=== PATIENT | male | born 1965 | race Caucasian/White ===

== ENCOUNTER 2018-06-21 09:56 | Emergency (ER) | payer BC, OTHER ==
[~2018-06-21] VITALS: Ht 188 cm; Wt 83.9 kg
--- NOTE | 2018-06-21 10:22 | NUR ---
PT WALKED INTO EMERGENCY ROOM FOR CHEST PRESSURE STARTING ABOUT 0945 THIS AM. PT HAD BEEN SEEN FOR SIMILAR SYNPTOMS AT [facility] AND IS DUE FOR STRES TEST. PIV ESTABLISHED EKG DONE SET UP ON [facility] [employer] [facility] SENT FOR PROCESSING. PT ALERT WITH ORIENTATION X 4 WILL CONTINUE TO MONITOR.
[2018-06-21 10:33] LABS: BASOPHILS % (AUTO) 0.5 % (0.0-2.0); EOSINOPHILS % (AUTO) 1.2 % (0.0-6.0); HEMATOCRIT 45 % (39-51); LYMPHOCYTES % (AUTO) 41.1 % (20.0-44.0); MEAN CORPUSCULAR HGB CONC 33 g/dl (31.0-36.0); MEAN CORPUSCULAR VOLUME 90 fL (80-96); MONOCYTES # (AUTO) 0.5 /CMM (0.1-1.30); MONOCYTES % (AUTO) 9.6 % (2.0-12.0); NEUTROPHILS # (AUTO) 2.4 /CMM (1.8-8.9); NEUTROPHILS % (AUTO) 47.6 % (43.0-81.0); PLATELET COUNT (AUTO) 203 /CMM (150-450); RED BLOOD CELL COUNT(AUTO) 5.02 MIL/uL (4.5-6.0)
[2018-06-21 10:40] LABS: CALCIUM, SERUM 8.9 mg/dL (8.5-10.1); CARBON DIOXIDE 28 mmol/L (21-32); CHLORIDE 103 mmol/L (98-107); CREATININE 1.1 mg/dL (0.6-1.3); GLUCOSE 104 mg/dL (74-106); POTASSIUM 3.5 mmol/L (3.5-5.1); SODIUM SERUM 142 mmol/L (136-145); UREA NITROGEN, BLOOD 19 mg/dL (7-18)
[2018-06-21 10:55] LABS: ALANINE AMINOTRANSFERASE 30 U/L (12-78); ALBUMIN 4.3 g/dL (3.4-5.0); ALKALINE PHOSPHATASE 62 U/L (46-116); ASPARTATE AMINOTRANSFERASE 18 U/L (15-37); BILIRUBIN,DIRECT 0.1 mg/dL (0.0-0.2); BILIRUBIN,TOTAL 0.5 mg/dL (0.2-1.0); TOTAL PROTEIN, SERUM 7.9 g/dL (6.4-8.2)
--- NOTE | 2018-06-21 11:58 | NUR ---
Patient discharged to home in stable condition. Written and verbal after care instructions given. Patient verbalizes understanding of instruction. IV removed. Catheter intact and site benign. Pressure and 4x4 applied to site. No bleeding noted.
[2018-06-21 11:59] VITALS: BP 148/72
== END 2018-06-21 11:59 | disposition home or self-care (01) ==
LOC: ER 09:57
DX: R00.2 Palpitations (principal); Z96.641 Presence of right artificial hip joint; Z60.2 Problems related to living alone; Z85.828 Personal history of other malignant neoplasm of skin
CPT/HCPCS: 36415; 71045-TC; 80048-TC; 80076-TC; 84484-TC; 85025-TC; 85730-TC; A4606; Z7610

== ENCOUNTER 2024-11-08 14:39 | Emergency (ER) | payer BC, OTHER ==
[~2024-11-08] VITALS: Ht 188 cm; Wt 83.9 kg
[2024-11-08 14:59] VITALS: BP 106/69; TEMP 98.4; O2SAT 100
[2024-11-08] MEDS ORDERED: TDAP [DIPH/PERTUSSIS/TET] 0.5 ML VIAL IM ONE (15:30)
[2024-11-08] MEDS: TDAP [DIPH/PERTUSSIS/TET] 0.5 ML VIAL IM ONE (15:30)
== END 2024-11-08 15:34 | disposition home or self-care (01) ==
LOC: ER 14:45
DX: S80.811A Abrasion, right lower leg, initial encounter (principal); Z86.79 Personal history of other diseases of the circulatory system; Z85.828 Personal history of other malignant neoplasm of skin; Z96.641 Presence of right artificial hip joint; W22.8XXA Striking against or struck by other objects, initial encounter; Y93.55 Activity, bike riding; Y92.488 Other paved roadways as the place of occurrence of the external cause; Y99.8 Other external cause status
CPT/HCPCS: 90715